=== PATIENT | female | born 1985 | race Caucasian/White ===

== ENCOUNTER 2017-10-17 21:10 | Emergency (ER) | payer OTHER, MEDICAID, SELFPAY ==
[2017-10-17 21:29] VITALS: BP 116/76; PULSE 103; RESP 20; TEMP 36.6; O2SAT 100
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
--- NOTE | 2017-10-17 23:00 | PC.NURSE ---
Hard c-collar applied,instructed not to move her neck side to supine,supine on gurney.
[2017-10-17 23:39] VITALS: BP 118/71; PULSE 88; RESP 18; O2SAT 99
[2017-10-18] MEDS: CYCLOBENZAPRINE 10 MG PREPACK 1 BOTTLE MISC (00:20)
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
== END 2017-10-18 00:05 | disposition home or self-care (01) ==
PROVIDERS: Emergency Provider Emergency Medicine
DX: M62.838 Other muscle spasm (principal)
CPT/HCPCS: 72125; 99282; 99284

== ENCOUNTER 2020-03-25 00:30 | Emergency (ER) | payer OTHER, SELFPAY ==
[2020-03-25 00:39] VITALS: BP 118/83; PULSE 117; RESP 16; O2SAT 100; BMI 20.5
--- NOTE | 2020-03-25 00:44 | DI.RAD.S_ITS ---
PROCEDURE: XR CHEST 2V INDICATIONS: left rib pain my lung is pinched TECHNIQUE: 2 views of the chest were acquired. COMPARISON: None. FINDINGS: Surgical changes and devices: None. Lungs and pleura: Lungs are clear. No pleural effusions or pneumothorax. Mediastinum: Mediastinal contours are normal. Heart size is normal. Bones and chest wall: No suspicious bony abnormalities. Soft tissues appear unremarkable. IMPRESSION: No acute cardiopulmonary disease process. Dictated by: Thalia Sinclair MD, PhD on 03/25/2020 at 9:14 Approved by: Thalia Sinclair MD, PhD on 03/25/2020 at 9:15
--- NOTE | 2020-03-25 01:09 | PC.NURSE ---
patient reports watching a comedy and laughing when she felt like she pinched her lung pain on left side worse with deep breath, feels like she can't take a deep full breath due to pain. Does not feel SOB, speaking in full sentences
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
== END 2020-03-25 02:00 | disposition left against medical advice (07) ==
PROVIDERS: Emergency Provider Emergency Medicine
DX: R07.1 Chest pain on breathing (principal)
CPT/HCPCS: 71046; 99283

== ENCOUNTER 2020-10-16 19:39 | Emergency (ER) | payer OTHER, MEDICAID, SELFPAY ==
[2020-10-16 19:44] VITALS: BP 126/79; PULSE 103; RESP 18; TEMP 36.6; O2SAT 100
--- NOTE | 2020-10-16 20:10 | ED_ITS ---
HPI - Dental/Oral General Chief complaint: Dental/Oral Stated complaint: swelling of face think form her tooth Time Seen by Provider: 10/16/20 20:01 Source: patient Mode of arrival: Ambulatory History of Present Illness HPI Narrative: The patient describes facial swelling, onset yesterday. She has left maxillary dental pain. She describes having known dental disease. She has no associated throat tightness, no fever, no shortness of breath. She has prior dental fractures, none acute. Related Data Previous Rx's Medication Instructions Recorded ferrous gluconate 324 mg (38 mg 324 mg PO BID #60 tab 05/06/16 iron) tablet medroxyprogesterone 10 mg tablet 0 PO SEE INSTRUCTIONS PRN #60 tab 05/30/16 desogestrel 0.15 mg-ethinyl 1 ea PO SEE INSTRUCTIONS #3 pac 06/06/16 estradiol 0.03 mg tablet (Keveneber) ibuprofen 600 mg tablet 600 mg PO TID-QID PRN #20 tab 10/17/17 prednisone 10 mg tablets in a dose See Rx Instructions PO PER PKG DIR 10/17/17 pack #21 each amoxicillin 500 mg capsule 500 mg PO TID 10 Days #30 cap 10/16/20 Allergies Allergy/AdvReac Type Severity Reaction Status Date / Time No Known Allergies Allergy Uncoded 03/25/20 00:43 Review of Systems Constitutional Constitutional: Reports as per HPI Comments: No fever or chills. ENT Ears, Nose, Mouth, and Throat: Reports dental pain Comments: Facial swelling Cardiovascular Cardiovascular: Denies chest pain Comments: No known cardiac issues Patient History Surgical History Status post dilation and curettage (05/22/16) Social History Smoking Status: Current every day smoker Smoking Status: Current every day smoker alcohol intake frequency: 3 or more drinks per day Substance Use Type: marijuana Exam Initial Vital Signs Initial Vital Signs: Vital Signs Temperature 97.8 F 10/16/20 19:44 Pulse Rate 103 H 10/16/20 19:44 Respiratory Rate 18 10/16/20 19:44 Blood Pressure 126/79 10/16/20 19:44 Pulse Oximetry 100 10/16/20 19:44 Const General: cooperative, healthy appearing and comfortable HENMA Head: other (Slight left facial swelling, no erythema. No induration or fl uctuance.) Mouth: oral mucosae normal, lip normal, tongue normal and mucous membranes abnormal Teeth and gingiva: caries and other (Fracture to tooth number 13. Tenderness consistent with tooth abscess.) Throat: posterior oropharynx normal Eyes General: appearance normal, both eyes and all related structures Neck Neck: No anterior neck swelling and No lymphadenopathy Cardio Rate: regular rate Rhythm: regular rhythm Heart Sounds: S1 normal and S2 normal Course Orders Ordered: Discontinued Medications Amoxicillin (Amoxicillin 250 Mg Capsule) 500 mg PO NOW ONE Stop: 10/16/20 20:03 Ibuprofen (Ibuprofen 400 Mg Tablet) 400 mg PO NOW ONE Stop: 10/16/20 20:03 Vital Signs Vital signs: Vital Signs - 8 hr 10/16/20 19:44 Temperature 97.8 F Pulse Rate 103 H Respiratory Rate 18 Blood Pressure 126/79 Pulse Oximetry 100 Discharge Plan Departure Patient Disposition: Home Clinical Impression: Abscess, dental Instructions: Tooth Abscess Activity Restrictions/Additional Instructions: Amoxicillin 3 times daily as prescribed. Advil 3 tablets every 6 hours as needed for pain. Apply ice packs over the area of swelling frequently for the next 2 days. I suggested follow-up with a dentist in 2-3 weeks. Return here if necessary. Prescriptions: New amoxicillin 500 mg capsule 500 mg PO TID 10 Days Qty: 30 RF: 0 No Action ferrous gluconate 324 MG tablet 324 mg PO BID Qty: 60 RF: 0 medroxyprogesterone 10 MG tablet 0 PO SEE INSTRUCTIONS PRNQty: 60 RF: 0 desogestrel-ethinyl estradiol [Laxmi] 1 EACH tablet 1 ea PO SEE INSTRUCTIONS Qty: 3 RF: 3 ibuprofen 600 mg tablet 600 mg PO TID-QID PRN (Reason: pain) Qty: 20 RF: 0 prednisone 10 mg tablets,dose pack See Rx Instructions PO PER PKG DIR Qty: 21 RF: 0
[2020-10-16] MEDS: IBUPROFEN 400 MG TABLET PO (20:19)
[2020-10-16] MEDS: AMOXICILLIN 250 MG CAPSULE 500 MG PO (20:19)
--- NOTE | 2020-10-16 20:21 | PC.NURSE ---
defer oral assessment to Dr Verdugo. Pt has left sided asymmetry, swollen.
== END 2020-10-16 20:27 | disposition home or self-care (01) ==
PROVIDERS: Emergency Provider Emergency Medicine
DX: K04.7 Periapical abscess without sinus (principal)
CPT/HCPCS: 99283

== ENCOUNTER 2020-12-12 11:09 | Emergency (ER) | payer OTHER, MEDICAID, SELFPAY ==
[2020-12-12 11:32] VITALS: BP 129/84; PULSE 77; RESP 18; TEMP 36.3; O2SAT 99
== END 2020-12-12 16:00 | disposition left against medical advice (07) ==
PROVIDERS: Emergency Provider Emergency Medicine
CPT/HCPCS: 99281

== ENCOUNTER 2020-12-12 22:48 | Emergency (ER) | payer OTHER, MEDICAID, SELFPAY ==
[2020-12-12 22:51] VITALS: BP 111/77; PULSE 104; RESP 20; TEMP 36.6; O2SAT 97
== END 2020-12-13 01:09 | disposition left against medical advice (07) ==
PROVIDERS: Emergency Provider Emergency Medicine
CPT/HCPCS: 99281

== ENCOUNTER 2021-06-28 11:43 | Emergency (ER) | payer OTHER, MEDICAID, SELFPAY ==
[2021-06-28 11:46] VITALS: BP 130/72; PULSE 100; RESP 15; TEMP 36.4; O2SAT 100; BMI 20.5
--- NOTE | 2021-06-28 11:52 | DI.CT.S_ITS ---
PROCEDURE: CT CERVICAL SPINE WO CON INDICATIONS: fall on top of head. TECHNIQUE: Noncontrast 3 mm thick sections acquired from the skull base to the T4 level. Sagittal and coronal reformats were then constructed. For radiation dose reduction, the following was used: automated exposure control, adjustment of mA and/or kV according to patient size. COMPARISON: [facility], CT, CT CERVICAL SPINE WO CON, 10/17/2017, 22:54. FINDINGS: Image quality: Excellent. Bones: No fractures or dislocations. Visualized superior ribs are intact. Mild multilevel degenerative disc disease and facet arthropathy. Soft tissues: Prevertebral soft tissues are normal in thickness. No paravertebral hematomas. No apical pneumothoraces. IMPRESSION: No fracture. No acute osseous lesion. If symptoms and/or clinical suspicion for pathology persists, evaluation with MRI should be considered for further assessment. Dictated by: Thalia Sinclair MD, PhD on 06/28/2021 at 12:14 Approved by: Thalia Sinclair MD, PhD on 06/28/2021 at 12:18
[2021-06-28] MEDS: TRAMADOL 50 MG TABLET PO (13:03)
[2021-06-28] MEDS: KETOROLAC 30 MG/ML VIAL 15 MG IM (13:03)
[2021-06-28] MEDS: LIDOCAINE PATCH 1 EACH ADH..PATCH 2 EACH TOP (13:03)
[2021-06-28] MEDS: methocarbamoL 500 MG TABLET PO (13:04)
[2021-06-28 13:23] VITALS: BP 136/80; PULSE 87; RESP 18; O2SAT 98
--- NOTE | 2021-06-28 16:13 | ED_ITS ---
HPI - Fall <GLORIA Tilley - Last Filed: 06/28/21 16:19> General Chief Complaint: Fall Stated Complaint: THINKS BROKE NECK ON TRAMPOLINE Time Seen by Provider: 06/28/21 12:17 Source: patient Mode of arrival: Ambulatory History of Present Illness HPI Narrative: 35-year-old female presents to the emergency department complaining neck pain after jumping on the trampoline last night and she tried to do a front flip, states she fell on the back of her neck and did not fully rotate. Patient denies any weakness, loss of bowel or bladder, endorses some numbness and tingling into her left fingers but states this is intermittent. She states she is unable to move her head fully to the left for to the right due to the pain on bilateral sides of her neck. She denies any loss of consciousness, nausea vomiting, chest pain, shortness of breath, incontinence, or weakness. She denies any vision changes, hallucinations, taking any medication for this, and currently she states her pain at 10/10. Related Data Previous Rx's Medication Instructions Recorded ferrous gluconate 324 mg (38 mg 324 mg PO BID #60 tab 05/06/16 iron) tablet medroxyprogesterone 10 mg tablet 0 PO SEE INSTRUCTIONS PRN #60 tab 05/30/16 desogestrel 0.15 mg-ethinyl 1 ea PO SEE INSTRUCTIONS #3 pac 06/06/16 estradiol 0.03 mg tablet (Juleber) ibuprofen 600 mg tablet 600 mg PO TID-QID PRN #20 tab 10/17/17 lidocaine 5 % topical patch 2 patch TOPICAL DAILY PRN #15 ea 06/28/21 (Lidoderm) methocarbamol 500 mg tablet 500 mg PO BID #14 tab 06/28/21 tramadol 50 mg tablet 50 mg PO DAILY PRN #10 tab 06/28/21 Allergies Allergy/AdvReac Type Severity Reaction Status Date / Time No Known Drug Allergies Allergy Verified 06/28/21 11:46 Review of Systems <GLORIA Tilley - Last Filed: 06/28/21 16:19> Review of Systems Narrative: General: denies fever, chills, malaise, sweats, fatigue Head/Neck: denies headache, endorses having bilateral neck pain, denies dizziness Eyes: denies visual changes, eye pain Cardio: denies chest pain, palpitations, edema Respiratory: denies dyspnea, cough, orthopnea GI: denies abdominal pain, nausea, vomiting, or diarrhea : denies dysuria, hematuria, urinary retention, frequency or incontinence MSK: denies joint pain, muscle weakness Skin: denies rash, itching, skin lesions or other Neuro: denies numbness, tingling Patient History <GLORIA Tilley - Last Filed: 06/28/21 16:19> Surgical History Status post dilation and curettage (05/22/16) Social History Smoking Status: Current every day smoker Smoking Status: Current every day smoker alcohol intake frequency: 3 or more drinks per day Substance Use Type: marijuana Exam <GLORIA Tilley - Last Filed: 06/28/21 16:19> Narrative Exam Narrative: Independently reviewed vitals signs and nursing notes. General: cooperative, comfortable, in no acute distress, well developed and well groomed Head: atraumatic, symmetrical facial expressions Neck: supple, atraumatic, without lymphadenopathy, bilateral trapezius muscle are tender to palpation, range of motion is limited due to pain Eyes: pupils equal round and reactive, EOMI, conjunctiva normal Nose: nares patent, no rhinorrhea Mouth/Throat: uvula midline, moist mucus membranes Cardiovascular: regular rate and rhythm, no peripheral edema, warm extremities Respiratory: normal effort, able to speak in complete sentences, no audible wheezing, stridor, or rales. No retractions or tachypnea. GI: abdomen soft, nontender to palpation, nondistended, no masses, no exquisite tenderness with exam, without guarding or rebound. MSK: moves all extremities, ambulatory w/steady gait, neurovascularly intact, no weakness Skin: brisk capillary refill, no rash, no erythema Neuro: normal speech and cognition, A&O x3, normal tone Psych: mental status is grossly normal, congruent mood, normal affect, pleasant and cooperative Initial Vital Signs Initial Vital Signs: Vital Signs Temperature 97.5 F L 06/28/21 11:46 Pulse Rate 100 H 06/28/21 11:46 Respiratory Rate 15 06/28/21 11:46 Blood Pressure 130/72 06/28/21 11:46 Pulse Oximetry 100 06/28/21 11:46 <Ventura Almazan DO - Last Filed: 06/28/21 16:53> Initial Vital Signs Initial Vital Signs: Vital Signs Temperature 97.5 F L 06/28/21 11:46 Pulse Rate 100 H 06/28/21 11:46 Respiratory Rate 15 06/28/21 11:46 Blood Pressure 130/72 06/28/21 11:46 Pulse Oximetry 100 06/28/21 11:46 Course <GLORIA Tilley - Last Filed: 06/28/21 16:19> Orders Ordered: ED Orders 06/28/21 11:52 CT cervical spine wo con Stat Discontinued Medications Ketorolac Tromethamine (Ketorolac 30 Mg/Ml Vial) 15 mg IM NOW ONE Stop: 06/28/21 12:53 Last Admin: 06/28/21 13:03 Dose: 15 mg Documented by: ANÍBAL Lidocaine (Lidocaine Patch 1 Each Adh..Patch) 2 each TOP NOW ONE Stop: 06/28/21 12:53 Last Admin: 06/28/21 13:03 Dose: 2 each Documented by: ANÍBAL Methocarbamol (Methocarbamol 500 Mg Tablet) 500 mg PO NOW ONE Stop: 06/28/21 12:53 Last Admin: 06/28/21 13:04 Dose: 500 mg Documented by: ANÍBAL Tramadol HCl (Tramadol 50 Mg Tablet) 50 mg PO NOW ONE Stop: 06/28/21 12:53 Last Admin: 06/28/21 13:03 Dose: 50 mg Documented by: ANÍBAL Vital Signs Vital signs: Vital Signs - 8 hr 06/28/21 11:46 06/28/21 13:23 Temperature 97.5 F L Pulse Rate 100 H 87 Respiratory Rate 15 18 Blood Pressure 130/72 136/80 Pulse Oximetry 100 98 <Ventura Almazan DO - Last Filed: 06/28/21 16:53> Orders Ordered: ED Orders 06/28/21 11:52 CT cervical spine wo con Stat Discontinued Medications Ketorolac Tromethamine (Ketorolac 30 Mg/Ml Vial) 15 mg IM NOW ONE Stop: 06/28/21 12:53 Last Admin: 06/28/21 13:03 Dose: 15 mg Documented by: ANÍBAL Lidocaine (Lidocaine Patch 1 Each Adh..Patch) 2 each TOP NOW ONE Stop: 06/28/21 12:53 Last Admin: 06/28/21 13:03 Dose: 2 each Documented by: ANÍBAL Methocarbamol (Methocarbamol 500 Mg Tablet) 500 mg PO NOW ONE Stop: 06/28/21 12:53 Last Admin: 06/28/21 13:04 Dose: 500 mg Documented by: ANÍBAL Tramadol HCl (Tramadol 50 Mg Tablet) 50 mg PO NOW ONE Stop: 06/28/21 12:53 Last Admin: 06/28/21 13:03 Dose: 50 mg Documented by: ANÍBAL Vital Signs Vital signs: Vital Signs - 8 hr 06/28/21 11:46 06/28/21 13:23 Temperature 97.5 F L Pulse Rate 100 H 87 Respiratory Rate 15 18 Blood Pressure 130/72 136/80 Pulse Oximetry 100 98 MDM - Fall <GLORIA Tilley - Last Filed: 06/28/21 16:19> Lab Data Labs: Point of Care Testing Test Results Negative Imaging Data CT - cervical spine: Radiologist's Impression: PROCEDURE:? CT CERVICAL SPINE WO CON ? INDICATIONS:? fall on top of head. ? TECHNIQUE:? Noncontrast 3 mm thick sections acquired from the skull base to the T4 level.? Sagittal and coronal reformats were then constructed.? For radiation dose reduction, the following was used:? automated exposure control, adjustment of mA and/or kV according to patient size.? ? COMPARISON:? [facility], CT, CT CERVICAL SPINE WO CON, 10/17/2017, 22:54. ? FINDINGS:? Image quality:? Excellent.? ? Bones:? No fractures or dislocations.? Visualized superior ribs are intact.? Mild multilevel degenerative disc disease and facet arthropathy.? ? Soft tissues:? Prevertebral soft tissues are normal in thickness.? No paravertebral hematomas.? No apical pneumothoraces.? ? ? IMPRESSION:? No fracture. No acute osseous lesion. If symptoms and/or clinical suspicion for pathology persists, evaluation with MRI should be considered for further assessment. ? ? Dictated by: Thalia Sinclair MD, PhD on 06/28/2021 at 12:14 ? ? Approved by: Thalia Sinclair MD, PhD on 06/28/2021 at 12:18 ? [facility] Narrative Medical decision making narrative: To the emergency department with neck pain after attempting a front flip on the trampoline last night and coming up short falling onto the back of her neck. Patient had a CT without contrast of her cervical spine which did not show any acute fracture or other abnormality. Patient had palpable muscle tension on bilateral sides of her cervical spine, with trapezius involvement. Her test was negative. She was treated for a neck strain and given lidocaine patch, Toradol, tramadol and methocarbamol for pain. She states this was helpful for her pain. Recommend close follow-up with primary care for outpatient physical therapy. Recommend heat packs, Tylenol, ibuprofen as needed, muscle relaxers and tramadol as needed, and lidocaine patches. Patient is appropriate and amenable to discharge home. Vital signs are stable on repeat examination is unremarkable. Patient has been informed of results. Patient has been given strict return to ER precautions for any new or worsening symptoms. Patient understands to follow up closely with outpatient providers as instructed. Patient understands plan and agrees to discharge home. All questions and concerns answered at this time. <Ventura Almazan, DO - Last Filed: 06/28/21 16:53> Lab Data Labs: Point of Care Testing Test Results Negative Discharge Plan Departure Patient Disposition: Home Clinical Impression: Acute strain of neck muscle Qualifiers: Encounter type: initial encounter Qualified Code(s): S16.1XXA - Strain of muscle, fascia and tendon at neck level, initial encounter Instructions: DI for Neck Sprain Activity Restrictions/Additional Instructions: *You have been diagnosed with a neck injury with muscle spasms. Please use heat, muscle relaxers as needed, lidocaine patches, ibuprofen starting tomorrow with food and rest for the next few days. You will be sore. Try not to be too still and do gentle range of motion throughout the day with your neck to prevent it from getting stiff. Please follow-up with your primary care provider if you continue to have numbness and tingling after doing these things above. There is no fracture on your CT scan which is good news. You may have local inflammation causing these symptoms in your fingers. If you are not getting better in the next week, physical therapy may be helpful for you. *What to do: *Please continue to take your regular medications as directed. [ x] New medication prescriptions sent to your pharmacy: [ [facility]] [ ] New medication written as a paper prescription [ ] No new medications given *Please follow up with your primary care provider in 2-3 days, call for an appointment. Let them know you were seen in the Emergency Department and that we asked that you be seen for follow-up. We will electronically transmit a record of today's note if your PCP is in our system *If you do not have a primary care provider please contact [phone] to establish care with one of the [facility] primary care providers. *Return to Emergency Department if you should have any new, worsening or concerning symptoms, such as [fever greater than 101F, chills, worsening pain, persistent vomiting or other bothersome symptoms] Prescriptions: New lidocaine [Lidoderm] 5 % adhesive patch,medicated 2 patch topical DAILY PRN (Reason: pain) Qty: 15 0RF Rx Instructions: leave on most painful area for up to 12 hrs tramadol 50 mg tablet 50 mg PO DAILY PRN (Reason: pain) Qty: 10 0RF methocarbamol 500 mg tablet 500 mg PO BID Qty: 14 0RF No Action ferrous gluconate 324 MG tablet 324 mg PO BID Qty: 60 0RF medroxyprogesterone 10 MG tablet 0 PO SEE INSTRUCTIONS PRNQty: 60 0RF desogestrel-ethinyl estradiol [Keveneber] 1 EACH tablet 1 ea PO SEE INSTRUCTIONS Qty: 3 3RF ibuprofen 600 mg tablet 600 mg PO TID-QID PRN (Reason: pain) Qty: 20 0RF <Ventura Almazan, DO - Last Filed: 06/28/21 16:53> [facility] Dr Almazan Co-Sign Statement: I was available for consultation during this patient's emergency department visit. This chart is signed by myself for administrative purposes only. I did not have direct contact with this patient during this visit. They were seen independently by the APC.
== END 2021-06-28 13:25 | disposition home or self-care (01) ==
PROVIDERS: Emergency Provider Nurse Practitioner Critical Care Medicine
DX: S16.1XXA Strain of muscle, fascia and tendon at neck level, initial encounter (principal); F17.200 Nicotine dependence, unspecified, uncomplicated; W19.XXXA Unspecified fall, initial encounter; Y93.44 Activity, trampolining
CPT/HCPCS: 72125; 81025; 96372; 99284; J1885

== ENCOUNTER 2021-09-29 14:09 | Emergency (ER) | payer OTHER, MEDICAID, SELFPAY ==
[2021-09-29 14:48] VITALS: BP 116/81; PULSE 95; RESP 18; TEMP 36.3; O2SAT 100
[2021-09-29] MEDS: KETOROLAC 10 MG TABLET PO (15:39)
[2021-09-29] MEDS: DOXYCYCLINE HYCLATE 100 MG TABLET PO (15:40)
--- NOTE | 2021-09-29 18:26 | ED_ITS ---
HPI - Skin/Abscess/Foreign Bdy <GLORIA Tilley - Last Filed: 09/29/21 19:16> General Chief complaint: Skin/Abscess/Foreign Body Stated complaint: thinks its a spider bite Time Seen by Provider: 09/29/21 15:23 Source: patient Mode of arrival: Ambulatory Limitations: no limitations History of Present Illness HPI narrative: This is a 36-year-old female presents emergency department with right forearm swelling, redness, it tenderness and pain started this morning. She states that she thinks she was bit by a spider or some bugs in her apartment, she states that there were lot of mosquitos in her house yesterday. Patient denies any open wound, she denies any recent fever, fatigue, illness, shortness of breath, chest pain or other symptom. Patient denies any open wound, denies any other wounds. Related Data Previous Rx's Medication Instructions Recorded ferrous gluconate 324 mg (38 mg 324 mg PO BID #60 tabs 05/06/16 iron) tablet medroxyprogesterone 10 mg tablet 0 PO SEE INSTRUCTIONS PRN #60 tabs 05/30/16 desogestrel 0.15 mg-ethinyl 1 ea PO SEE INSTRUCTIONS ##3 06/06/16 estradiol 0.03 mg tablet (Juleber) ibuprofen 600 mg tablet 600 mg PO TID-QID PRN pain #20 tabs 10/17/17 lidocaine 5 % topical patch 2 patch topical DAILY PRN pain #15 06/28/21 (Lidoderm) ea methocarbamol 500 mg tablet 500 mg PO BID muscle spasm #14 tabs 06/28/21 tramadol 50 mg tablet 50 mg PO DAILY PRN pain #10 tabs 06/28/21 ibuprofen 600 mg tablet 600 mg PO Q8H PRN pain #20 tabs 07/17/21 doxycycline hyclate 100 mg capsule 100 mg PO BID 7 days #14 caps 09/29/21 Allergies Allergy/AdvReac Type Severity Reaction Status Date / Time No Known Drug Allergies Allergy Verified 09/29/21 14:47 Review of Systems <GLORIA Tilley - Last Filed: 09/29/21 19:16> Review of Systems Narrative: General: denies fever, chills, malaise, sweats, fatigue Head/Neck: denies headache, neck pain, dizziness Eyes: denies visual changes, eye pain Cardio: denies chest pain, palpitations, edema Respiratory: denies dyspnea, cough, orthopnea GI: denies abdominal pain, nausea, vomiting, or diarrhea : denies dysuria, hematuria, urinary retention, frequency or incontinence MSK: denies joint pain, muscle weakness Skin: denies rash, itching, endorses swelling and erythema to her right forearm Neuro: denies numbness, tingling Patient History <GLORIA Tilley - Last Filed: 09/29/21 19:16> Surgical History Status post dilation and curettage (05/22/16) Social History Smoking Status: Current every day smoker Smoking Status: Current every day smoker alcohol intake frequency: 3 or more drinks per day Substance Use Type: marijuana Exam <GLORIA Tilley - Last Filed: 09/29/21 19:16> Narrative Exam Narrative: Independently reviewed vitals signs and nursing notes. General: cooperative, comfortable, in no acute distress, well groomed Head: atraumatic, symmetrical facial expressions Neck: supple Eyes: equal round and reactive, EOMI, conjunctiva normal Nose: nares patent, no rhinorrhea Mouth/Throat: moist mucus membranes Cardiovascular: regular rate and rhythm, no peripheral edema, warm extremities Respiratory: normal effort, able to speak in complete sentences, no audible wheezing, stridor, or rales. No retractions or tachypnea. GI: abdomen soft, nontender to palpation, nondistended, no masses, no exquisite tenderness with exam, without guarding or rebound. MSK: moves all extremities, neurovascularly intact, no weakness, normal tone Skin: brisk capillary refill, erythema and edema to her right forearm, this is approximately 4 cm x 2 cm, no streaking or fluctuance, no open wound, bite gutiérrez, no range of motion deficit, patient has full flexion extension of her right elbow and wrist. Neuro: normal speech and cognition, A&O x3 Psych: mental status is grossly normal, congruent mood, normal affect, pleasant and cooperative Initial Vital Signs Initial Vital Signs: Vital Signs Temperature 97.4 F L 09/29/21 14:48 Pulse Rate 95 H 09/29/21 14:48 Respiratory Rate 18 09/29/21 14:48 Blood Pressure 116/81 09/29/21 14:48 Pulse Oximetry 100 09/29/21 14:48 Oxygen Delivery Method 09/29/21 14:48 <Ventura Almazan DO - Last Filed: 09/29/21 19:24> Initial Vital Signs Initial Vital Signs: Vital Signs Temperature 97.4 F L 09/29/21 14:48 Pulse Rate 95 H 09/29/21 14:48 Respiratory Rate 18 09/29/21 14:48 Blood Pressure 116/81 09/29/21 14:48 Pulse Oximetry 100 09/29/21 14:48 Oxygen Delivery Method 09/29/21 14:48 Course <GLORIA Tilley - Last Filed: 09/29/21 19:16> Orders Ordered: Discontinued Medications Doxycycline Hyclate (Doxycycline Hyclate 100 Mg Tablet) 100 mg PO NOW ONE Stop: 09/29/21 15:31 Last Admin: 09/29/21 15:40 Dose: 100 mg Documented By: KP Ketorolac Tromethamine (Ketorolac 10 Mg Tablet) 10 mg PO NOW ONE Stop: 09/29/21 15:31 Last Admin: 09/29/21 15:39 Dose: 10 mg Documented By: KP Vital Signs Vital signs: Vital Signs - 8 hr 09/29/21 14:48 Temperature 97.4 F L Pulse Rate 95 H Respiratory Rate 18 Blood Pressure 116/81 Pulse Oximetry 100 Oxygen Delivery Method Room Air <Ventura Almazan DO - Last Filed: 09/29/21 19:24> Orders Ordered: Discontinued Medications Doxycycline Hyclate (Doxycycline Hyclate 100 Mg Tablet) 100 mg PO NOW ONE Stop: 09/29/21 15:31 Last Admin: 09/29/21 15:40 Dose: 100 mg Documented By: KP Ketorolac Tromethamine (Ketorolac 10 Mg Tablet) 10 mg PO NOW ONE Stop: 09/29/21 15:31 Last Admin: 09/29/21 15:39 Dose: 10 mg Documented By: KP Vital Signs Vital signs: Vital Signs - 8 hr 09/29/21 14:48 Temperature 97.4 F L Pulse Rate 95 H Respiratory Rate 18 Blood Pressure 116/81 Pulse Oximetry 100 Oxygen Delivery Method Room Air MDM - Skin/Abscess/Foreign Bdy <Mary Blancas, [facility] - Last Filed: 09/29/21 19:16> [facility] Narrative Medical decision making narrative: This is a 36-year-old female presents the emergency department with right forearm swelling, erythema and pain which started when she woke up this morning and she thought she was bit by a spider or mosquitos. Patient denies any history of this in the past, had appears like cellulitis today on her right forearm approximately 4 cm x 2 cm, erythematous and edematous without any fluctuance or palpable abscess. She has full range of motion of her right elbow and arm without any deficit. She is neurovascularly intact without any sensation changes, has been afebrile without any systemic symptoms of illness. She was prescribed seven days of doxycycline, denies any medication allergies, she was given strict return precautions, fever she was also given Toradol p.o. for pain. She is encouraged to use Tylenol and ibuprofen as needed for pain at or fever home and to return to the emergency department for any worsening of this. Patient is appropriate and amenable to discharge home. Vital signs are stable on repeat examination is unremarkable. Patient has been informed of results. Patient has been given strict return to ER precautions for any new or worsening symptoms. Patient understands to follow up closely with outpatient providers as instructed. Patient understands plan and agrees to discharge home. All questions and concerns answered at this time. Discharge Plan Departure Patient Disposition: Home Clinical Impression: Cellulitis Qualifiers: Site of cellulitis: extremity Site of cellulitis of extremity: upper extremity Laterality: right Qualified Code(s): L03.113 - Cellulitis of right upper limb Instructions: DI for Cellulitis -- Adult Activity Restrictions/Additional Instructions: *You have been diagnosed with a skin infection of your right forearm, this could be due to a bug bite or other cause but it does not appear that there is any abscess at this time. Please take this antibiotic twice a day for the next seven days, stay hydrated, you can take ibuprofen starting tomorrow and Tylenol any time today for pain. You may use ice, keep it elevated, if this gets worse over the next 24 hours after two doses of an antibiotic, please return to the emergency department for another evaluation, if you have streaking redness up your arm, please return to emergency department as well. This should get better after 24 hours, hope it feels better soon. *What to do: *Please continue to take your regular medications as directed. [x ] New medication prescriptions sent to your pharmacy: [facility] ] [ ] New medication written as a paper prescription [ ] No new medications given *Please follow up with your primary care provider in 2-3 days, call for an appointment. Let them know you were seen in the Emergency Department and that we asked that you be seen for follow-up. We will electronically transmit a record of today's note if your PCP is in our system *If you do not have a primary care provider please contact [phone] to establish care with one of the [facility] primary care providers. *Return to Emergency Department if you should have any new, worsening or concerning symptoms, such as [fever greater than 101F, chills, worsening pain, persistent vomiting or other bothersome symptoms] Prescriptions: New doxycycline hyclate 100 mg capsule 100 mg PO BID 7 Days Qty: 14 0RF No Action ibuprofen 600 mg tablet 600 mg PO Q8H PRN (Reason: pain) Qty: 20 0RF ferrous gluconate 324 MG tablet 324 mg PO BID Qty: 60 0RF medroxyprogesterone 10 MG tablet 0 PO SEE INSTRUCTIONS PRNQty: 60 0RF desogestrel-ethinyl estradiol [Juleber] 1 EACH tablet 1 ea PO SEE INSTRUCTIONS Qty: 3 3RF ibuprofen 600 mg tablet 600 mg PO TID-QID PRN (Reason: pain) Qty: 20 0RF lidocaine [Lidoderm] 5 % adhesive patch,medicated 2 patch topical DAILY PRN (Reason: pain) Qty: 15 0RF Rx Instructions: leave on most painful area for up to 12 hrs tramadol 50 mg tablet 50 mg PO DAILY PRN (Reason: pain) Qty: 10 0RF methocarbamol 500 mg tablet 500 mg PO BID Qty: 14 0RF Referrals: Miscellaneous,Doctor, MD [Primary Care Provider] - Visit Report Forms: Patient Portal/API <Ventura Almazan, DO - Last Filed: 09/29/21 19:24> [facility] Dr Almazan Co-Sign Statement: I was available for consultation during this patient's emergency department visit. This chart is signed by myself for administrative purposes only. I did not have direct contact with this patient during this visit. They were seen independently by the APC.
== END 2021-09-29 15:52 | disposition home or self-care (01) ==
PROVIDERS: Emergency Provider Nurse Practitioner Critical Care Medicine
DX: L03.113 Cellulitis of right upper limb (principal)
CPT/HCPCS: 99283

== ENCOUNTER 2021-10-23 11:17 | Emergency (ER) | payer OTHER, MEDICAID, SELFPAY ==
--- NOTE | 2021-10-23 12:47 | PC.NURSE ---
3rd and final call from triage. No answer
== END 2021-10-23 11:50 | disposition left against medical advice (07) ==
PROVIDERS: Emergency Provider Emergency Medicine

== ENCOUNTER 2022-01-05 21:03 | Emergency (ER) | payer OTHER, MEDICAID, SELFPAY ==
[2022-01-05 21:10] VITALS: BP 110/74; PULSE 107; RESP 16; TEMP 36.1; O2SAT 97; BMI 20.5
[2022-01-05 22:09] LABS: Amorphous Sediment Urine 2+; Bacteria Urine Occasional (0-1); RBC Urine 1-5/HPF (0-5/HPF); WBC Urine 5-10/HPF (0-5/HPF)
[2022-01-05 22:10] LABS: Ictotest Urine Negative (Negative)
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
[2022-01-05] MEDS: NITROFURANTOIN ER 100 MG CAPSULE PO (22:22)
== END 2022-01-05 22:25 | disposition home or self-care (01) ==
PROVIDERS: Emergency Provider Emergency Medicine
DX: N39.0 Urinary tract infection, site not specified (principal)
CPT/HCPCS: 81003; 81015; 81025; 87077; 87086; 99283

== ENCOUNTER 2022-05-06 04:54 | Emergency (ER) | payer OTHER, MEDICAID, SELFPAY ==
[2022-05-06 05:03] VITALS: BMI 20.5
[2022-05-06 05:16] VITALS: BP 118/87; PULSE 111; RESP 22; TEMP 36.2; O2SAT 99; BMI 20.5
--- NOTE | 2022-05-06 05:22 | ED_ITS ---
HPI - Psych General Chief Complaint: Psychiatric Symptoms Stated Complaint: suicidal Time Seen by Provider: 05/06/22 05:01 Source: patient Mode of arrival: Ambulatory Limitations: no limitations History of Present Illness HPI Narrative: Patient is a 36-year-old female with a history of substance and alcohol abuse jorge banks arrives in the emergency department today stating that she was having thoughts of killing herself. She states she is scheduled to attend rehab today but there has been issues with her ride if getting there now she does not have a ride which causes her to get anxious and having thoughts of hurting herself. She states that she ?does not have the balls? to follow through with hurting herself. She is 2 kids at home. She did admit to drinking alcohol yesterday. She stated that she has a bed waiting for her at [facility] in [facility]. She arrives today not knowing what to do and how to get to the facility. Related Data Previous Rx's Medication Instructions Recorded ferrous gluconate 324 mg (38 mg 324 mg PO BID #60 tabs 05/06/16 iron) tablet medroxyprogesterone 10 mg tablet 0 PO SEE INSTRUCTIONS PRN #60 tabs 05/30/16 desogestrel 0.15 mg-ethinyl 1 ea PO SEE INSTRUCTIONS ##3 06/06/16 estradiol 0.03 mg tablet (Laxmi) ibuprofen 600 mg tablet 600 mg PO TID-QID PRN pain #20 tabs 10/17/17 lidocaine 5 % topical patch 2 patch topical DAILY PRN pain #15 06/28/21 (Lidoderm) ea methocarbamol 500 mg tablet 500 mg PO BID muscle spasm #14 tabs 06/28/21 tramadol 50 mg tablet 50 mg PO DAILY PRN pain #10 tabs 06/28/21 ibuprofen 600 mg tablet 600 mg PO Q8H PRN pain #20 tabs 07/17/21 Allergies Allergy/AdvReac Type Severity Reaction Status Date / Time No Known Drug Allergies Allergy Verified 01/05/22 21:16 Review of Systems Constitutional Constitutional: Reports system reviewed and no additional complaints, except as documented Cardiovascular Comments: No chest pain Respiratory Comments: No shortness of breath Gastrointestinal Comments: No abdominal pain Psychiatric Psychiatric: Reports system reviewed and no additional complaints, except as documented Patient History Surgical History Status post dilation and curettage (05/22/16) Social History Smoking Status: Current every day smoker Smoking Status: Current every day smoker alcohol intake frequency: 3 or more drinks per day Substance Use Type: marijuana and methamphetamine Exam Initial Vital Signs Initial Vital Signs: Vital Signs Temperature 97.2 F L 05/06/22 05:16 Pulse Rate 111 H 05/06/22 05:16 Respiratory Rate 22 05/06/22 05:16 Blood Pressure 118/87 05/06/22 05:16 Pulse Oximetry 99 05/06/22 05:16 Oxygen Delivery Method 05/06/22 05:16 HENMT Head: normal to inspection and normocephalic Resp Effort & Inspection: normal respiratory effort Cardio Rate: regular rate Neuro General: patient alert, patient awake and moves all extremities Psych Other: Is calm and cooperative. Course Orders Ordered: ED Orders 05/06/22 05:09 Consult to [employer] - Office Clerk Assistant Stat 05/06/22 05:25 COVID19 -Nasal RAPID/Pre-Proc Stat 05/06/22 05:45 Complete Blood Count AUTO DIFF Stat Comprehensive Metabolic Panel Stat Ethanol (ETOH) Stat Lipase Stat Test Serum,Qual Stat Thyroid Stimulating Hormone Stat 05/06/22 06:00 Urine Drug Screen, Rapid Stat Vital Signs Vital signs: Vital Signs - 8 hr 05/06/22 05:16 05/06/22 06:44 Temperature 97.2 F L 97.3 F L Pulse Rate 111 H 93 H Respiratory Rate 22 18 Blood Pressure 118/87 122/70 Pulse Oximetry 99 99 Oxygen Delivery Method Room Air Room Air [facility] - Psych Lab Data Attestation: I reviewed the patient's lab results. 05/06/22 05:45 05/06/22 05:45 Labs: Lab Results 05/06/22 05/06/22 05/06/22 Range/Units 05:45 05:45 05:45 WBC 6.8 (4.5-11.0) X10^3/uL RBC 4.10 (4.0-5.2) X10^6/uL Hgb 11.2 L (12.0-16.0) g/dL Hct 33.8 L (36-46) % MCV 82.3 (80-100) fL MCH 27.2 (26-34) PG MCHC 33.1 (30-36) % RDW 15.9 H (11.6-14.8) % Plt Count 238 (150-400) X10^3/uL Neut % (Auto) 65.4 (50-75) % Lymph % (Auto) 24.0 L (25-40) % Sampson % (Auto) 9.0 (3-14) % Eos % (Auto) 1.2 L (2-4) % Baso % (Auto) 0.4 (0-2) % Neut # (Auto) 4400 (0438-3783) /uL Lymph # (Auto) 1600 (9016-9159) /uL Sampson # (Auto) 600 (0-900) /uL Eos # (Auto) 100 (0-450) /uL Baso # (Auto) 0 (0-100) /uL Sodium 140 (137-145) mmol/L Potassium 3.5 (3.4-5.1) mmol/L Chloride 103 (98-107) mmol/L Carbon Dioxide 28 (22-32) mmol/L BUN 13 (7-17) mg/dL Creatinine 0.85 (0.52-1.04) mg/dL Estimated GFR > 60 (>60) mL/min BUN/Creatinine Ratio 15.3 (6-22) Glucose 94 (70-100) mg/dL Calcium 9.3 (8.4-10.2) mg/dL Total Bilirubin 0.5 (0.2-1.3) mg/dL AST 22 (14-36) IU/L ALT 15 (<35) IU/L Alkaline Phosphatase 65 (38-126) U/L Total Protein 7.6 (6.3-8.2) g/dL Albumin 4.6 (3.5-5.0) g/dL Globulin 3.0 (1.7-4.1) g/dL Albumin/Globulin Ratio 1.5 (1.0-2.8) Lipase 37 (23-300) U/L Serum , Qual Negative (Negative) U Opiates 300ng/mL cut (Negative) Ur Oxycodone Screen (Negative) Urine Methadone Screen (Negative) Ur Barbiturates Screen (Negative) U Tricyclic Antidepress (Negative) Ur Phencyclidine Scrn (Negative) Ur Amphetamines Screen (Negative) U Methamphetamines Scrn (Negative) Ur MDMA Scrn (Ecstasy) (Negative) U Benzodiazepines Scrn (Negative) Urine Cocaine Screen (Negative) U Marijuana (THC) Screen (Negative) Ethyl Alcohol < 10 ( - 10) mg/dL 05/06/22 Range/Units 06:00 WBC (4.5-11.0) X10^3/uL RBC (4.0-5.2) X10^6/uL Hgb (12.0-16.0) g/dL Hct (36-46) % MCV (80-100) fL MCH (26-34) PG MCHC (30-36) % RDW (11.6-14.8) % Plt Count (150-400) X10^3/uL Neut % (Auto) (50-75) % Lymph % (Auto) (25-40) % Sampson % (Auto) (3-14) % Eos % (Auto) (2-4) % Baso % (Auto) (0-2) % Neut # (Auto) (5434-6920) /uL Lymph # (Auto) (6427-9832) /uL Sampson # (Auto) (0-900) /uL Eos # (Auto) (0-450) /uL Baso # (Auto) (0-100) /uL Sodium (137-145) mmol/L Potassium (3.4-5.1) mmol/L Chloride (98-107) mmol/L Carbon Dioxide (22-32) mmol/L BUN (7-17) mg/dL Creatinine (0.52-1.04) mg/dL Estimated GFR (>60) mL/min BUN/Creatinine Ratio (6-22) Glucose (70-100) mg/dL Calcium (8.4-10.2) mg/dL Total Bilirubin (0.2-1.3) mg/dL AST (14-36) IU/L ALT (<35) IU/L Alkaline Phosphatase (38-126) U/L Total Protein (6.3-8.2) g/dL Albumin (3.5-5.0) g/dL Globulin (1.7-4.1) g/dL Albumin/Globulin Ratio (1.0-2.8) Lipase (23-300) U/L Serum , Qual (Negative) U Opiates 300ng/mL cut Negative (Negative) Ur Oxycodone Screen Negative (Negative) Urine Methadone Screen Negative (Negative) Ur Barbiturates Screen Negative (Negative) U Tricyclic Antidepress Negative (Negative) Ur Phencyclidine Scrn Negative (Negative) Ur Amphetamines Screen Positive H (Negative) U Methamphetamines Scrn Positive H (Negative) Ur MDMA Scrn (Ecstasy) Positive H (Negative) U Benzodiazepines Scrn Negative (Negative) Urine Cocaine Screen Negative (Negative) U Marijuana (THC) Screen Positive H (Negative) Ethyl Alcohol ( - 10) mg/dL MDM Narrative Medical decision making narrative: Patient is medically cleared. I contacted the [facility] however the night coverage there stated that he was not able to look up whether not the patient actually had a bed or not. The plan was to keep the patient here in the emergency department until the morning of the transport her to the facility. While she was here 1 of her friends arrived and offered to take her. Patient states that she felt safe doing this. Her friend felt safe taking her as well. Will discharge patient to go to the rehab facility. Discharge Plan Departure Patient Disposition: Home Clinical Impression: Depression Instructions: Depression Activity Restrictions/Additional Instructions: Your being discharged under the care of your friend to be driven to [place] for the recovery center. Be careful on your drive there. Please return to the emergency department for any new or worsening symptoms. Prescriptions: No Action ibuprofen 600 mg tablet 600 mg PO Q8H PRN (Reason: pain) Qty: 20 0RF ferrous gluconate 324 MG tablet 324 mg PO BID Qty: 60 0RF medroxyprogesterone 10 MG tablet 0 PO SEE INSTRUCTIONS PRNQty: 60 0RF desogestrel-ethinyl estradiol [Juleber] 1 EACH tablet 1 ea PO SEE INSTRUCTIONS Qty: 3 3RF ibuprofen 600 mg tablet 600 mg PO TID-QID PRN (Reason: pain) Qty: 20 0RF lidocaine [Lidoderm] 5 % adhesive patch,medicated 2 patch topical DAILY PRN (Reason: pain) Qty: 15 0RF Rx Instructions: leave on most painful area for up to 12 hrs tramadol 50 mg tablet 50 mg PO DAILY PRN (Reason: pain) Qty: 10 0RF methocarbamol 500 mg tablet 500 mg PO BID Qty: 14 0RF Referrals: Miscellaneous,Doctor, MD [Primary Care Provider] - Stand Alone Forms: Patient Portal/API
[2022-05-06 05:58] LABS: Add Manual Diff / Slide Review NO; Basophils Absolute Auto 0 /uL (0-100); Basophils Percent Auto 0.4 % (0-2); Eosinophils Absolute Auto 100 /uL (0-450); Eosinophils Percent Auto 1.2 % (2-4); Hematocrit 33.8 % (36-46); Hemoglobin 11.2 g/dL (12.0-16.0); Lymphocytes Absolute Auto 1600 /uL (1100-4500); Mean Corpuscular HGB Conc 33.1 % (30-36); Mean Corpuscular Hemoglobin 27.2 PG (26-34); Mean Corpuscular Volume 82.3 fL (80-100); Monocytes Absolute Auto 600 /uL (0-900); Neutrophils Absolute Auto 4400 /uL (1500-7000); Neutrophils Percent Auto 65.4 % (50-75); Platelet Count 238 X10^3/uL (150-400); Red Cell Distribution Width 15.9 % (11.6-14.8); White Blood Cell Count 6.8 X10^3/uL (4.5-11.0)
[2022-05-06 06:04] LABS: Alanine Aminotransferase 15 IU/L (<35); Albumin 4.6 g/dL (3.5-5.0); Albumin Globulin Ratio 1.5 (1.0-2.8); Alkaline Phosphatase 65 U/L (38-126); Aspartate Aminotransferase 22 IU/L (14-36); BUN Creatinine Ratio 15.3 (6-22); Bilirubin Total 0.5 mg/dL (0.2-1.3); Blood Urea Nitrogen 13 mg/dL (7-17); Calcium 9.3 mg/dL (8.4-10.2); Carbon Dioxide 28 mmol/L (22-32); Chloride 103 mmol/L (98-107); Estimated Glomerular Filt Rate > 60 mL/min (>60); Ethanol (ETOH) < 10 mg/dL; Glucose 94 mg/dL (70-100); HEMOLYSIS < 15 (0-50); Lipase 37 U/L (23-300); Potassium 3.5 mmol/L (3.4-5.1); Sodium 140 mmol/L (137-145); Total Protein 7.6 g/dL (6.3-8.2)
[2022-05-06 06:15] LABS: Pregnancy Test Serum,Qual Negative (Negative)
[2022-05-06 06:24] LABS: UR Morphine/Opiate cutoff 300 Negative (Negative); Ur Creatinine 50 (Normal); Ur Specific Gravity 1.025 (Normal); Urine Amphetamines Positive (Negative); Urine Barbiturates Negative (Negative); Urine Benzodiazepines Negative (Negative); Urine Cocaine Negative (Negative); Urine MDMA Positive (Negative); Urine Methadone Negative (Negative); Urine Methamphetamines Positive (Negative); Urine Oxycodone Negative (Negative); Urine Phencyclidine Negative (Negative); Urine Tetrahydrocannabinol Positive (Negative); Urine Tricyclic Antidepressant Negative (Negative); Urine pH 7 (Normal)
[2022-05-06 06:44] VITALS: BP 122/70; PULSE 93; RESP 18; TEMP 36.3; O2SAT 99
[2022-05-06 06:47] LABS: Thyroid Stimulating Hormone 2.49 uIU/mL (0.47-4.68)
[2022-05-06 07:07] LABS: COVID19 -Nasal RAPID Negative (Negative)
== END 2022-05-06 06:45 | disposition home or self-care (01) ==
PROVIDERS: Emergency Provider Emergency Medicine
DX: F32.A Depression, unspecified (principal); Z20.822 Contact with and (suspected) exposure to COVID-19
CPT/HCPCS: 80053; 80305; 80320; 83690; 84443; 84703; 85025; 87635; 99284; C9803

== ENCOUNTER → 2022-07-20 14:12 | Outpatient (CLI) | payer OTHER, MEDICAID, SELFPAY ==
[2022-07-20 15:16] LABS: Add Manual Diff / Slide Review NO; Basophils Absolute Auto 0 /uL (0-100); Basophils Percent Auto 0.5 % (0-2); Eosinophils Absolute Auto 100 /uL (0-450); Eosinophils Percent Auto 1.5 % (2-4); Hemoglobin 11.1 g/dL (12.0-16.0); Lymphocytes Absolute Auto 1500 /uL (1100-4500); Lymphocytes Percent Auto 25.6 % (25-40); Mean Corpuscular HGB Conc 32.6 % (30-36); Mean Corpuscular Hemoglobin 26.5 PG (26-34); Mean Corpuscular Volume 81.4 fL (80-100); Monocytes Absolute Auto 500 /uL (0-900); Monocytes Percent Auto 9.4 % (3-14); Neutrophils Absolute Auto 3600 /uL (1500-7000); Platelet Count 208 X10^3/uL (150-400); Red Blood Cell Count 4.18 X10^6/uL (4.0-5.2); White Blood Cell Count 5.8 X10^3/uL (4.5-11.0)
== END ==
PROVIDERS: Referring Provider Family Medicine; Visit Provider Family Medicine
DX: G25.0 Essential tremor (principal)
CPT/HCPCS: 36415; 85025

== ENCOUNTER → 2022-08-03 15:30 | Outpatient (CLI) | payer OTHER, MEDICAID, SELFPAY ==
[2022-08-03 17:44] LABS: HEMOLYSIS < 15 (0-50); Iron 19 ug/dL (37-170)
[2022-08-03 17:46] LABS: Alanine Aminotransferase 15 IU/L (<35); Albumin 4.2 g/dL (3.5-5.0); Albumin Globulin Ratio 1.6 (1.0-2.8); Alkaline Phosphatase 80 U/L (38-126); Aspartate Aminotransferase 18 IU/L (14-36); BUN Creatinine Ratio 19.5 (6-22); Bilirubin Total 0.3 mg/dL (0.2-1.3); Blood Urea Nitrogen 16 mg/dL (7-17); Calcium 9.1 mg/dL (8.4-10.2); Carbon Dioxide 26 mmol/L (22-32); Chloride 104 mmol/L (98-107); Estimated Glomerular Filt Rate > 60 mL/min (>60); Globulin 2.7 g/dL (1.7-4.1); Glucose 81 mg/dL (70-100); HEMOLYSIS < 15 (0-50); Potassium 3.8 mmol/L (3.4-5.1); Sodium 137 mmol/L (137-145); Total Protein 6.9 g/dL (6.3-8.2)
[2022-08-03 17:54] LABS: Percent Iron Saturation 5 % (15-50); Total Iron Binding Capacity 390 ug/dL (265-497); Transferrin 300 mg/dL (206-381)
[2022-08-03 18:15] LABS: TSH w/ Reflex to FT4 1.69 uIU/mL (0.47-4.68)
[2022-08-03 18:22] LABS: Ferritin 5 ng/mL (6-137)
[2022-08-03 18:54] LABS: Folate 8.3 ng/mL (2.76-20.0); Vitamin B12 289 pg/mL (239-931)
== END ==
PROVIDERS: Referring Provider Family Medicine; Visit Provider Family Medicine
DX: D64.9 Anemia, unspecified (principal)
CPT/HCPCS: 36415; 80053; 82607; 82728; 82746; 83540; 83550; 84443

== ENCOUNTER 2022-08-26 03:58 | Emergency (ER) | payer OTHER, MEDICAID, SELFPAY ==
[2022-08-26 04:04] VITALS: BP 121/77; PULSE 89; RESP 18; TEMP 36.5; O2SAT 98; BMI 20.5
--- NOTE | 2022-08-26 04:36 | ED.SKABFB ---
HPI - Skin/Abscess/Foreign Bdy General Chief complaint: Skin/Abscess/Foreign Body Stated complaint: Bug Bite Time Seen by Provider: 08/26/22 04:22 Source: patient Mode of arrival: Family Vehicle Limitations: no limitations History of Present Illness HPI narrative: Patient is a healthy 37-year-old female who presents with right-sided for his swelling and neck pain. She reports she was bit by a bug. She had some swelling but says it got worse throughout the night. She tried a little bit of ice did not really help. She feels like she might be having some difficulty swallowing. She is put calamine lotion on top of her forehead it is not helping. Related Data Previous Rx's Medication Instructions Recorded ferrous gluconate 324 mg (38 mg 324 mg PO BID #60 tabs 05/06/16 iron) tablet medroxyprogesterone 10 mg tablet 0 PO SEE INSTRUCTIONS PRN #60 tabs 05/30/16 desogestrel 0.15 mg-ethinyl 1 ea PO SEE INSTRUCTIONS ##3 06/06/16 estradiol 0.03 mg tablet (Keveneber) ibuprofen 600 mg tablet 600 mg PO TID-QID PRN pain #20 tabs 10/17/17 lidocaine 5 % topical patch 2 patch topical DAILY PRN pain #15 06/28/21 (Lidoderm) ea methocarbamol 500 mg tablet 500 mg PO BID muscle spasm #14 tabs 06/28/21 tramadol 50 mg tablet 50 mg PO DAILY PRN pain #10 tabs 06/28/21 ibuprofen 600 mg tablet 600 mg PO Q8H PRN pain #20 tabs 07/17/21 Allergies Allergy/AdvReac Type Severity Reaction Status Date / Time No Known Drug Allergies Allergy Verified 08/26/22 04:34 Review of Systems Review of Systems ROS Unobtainable: All systems reviewed & are unremarkable except as noted in HPI and below Patient History Surgical History Status post dilation and curettage (05/22/16) Social History Smoking Status: Current every day smoker Smoking Status: Current every day smoker alcohol intake frequency: 3 or more drinks per day Substance Use Type: marijuana and methamphetamine Exam Initial Vital Signs Initial Vital Signs: Vital Signs Temperature 97.7 F 08/26/22 04:04 Pulse Rate 89 08/26/22 04:04 Respiratory Rate 18 08/26/22 04:04 Blood Pressure 121/77 08/26/22 04:04 Pulse Oximetry 98 08/26/22 04:04 Oxygen Delivery Method Room Air 08/26/22 04:04 GENERAL: Well-appearing 37 year female HEENT: Head atraumatic,EOMI, pupils reactive, face symmetric, moist mucous membranes CARDIOVASCULAR: Regular rate and rhythm without murmurs, rubs or gallops. RESPIRATORY: Breath sounds equal bilaterally, no wheezes rales or rhonchi. No difficulty speaking, managing own secretions, no stridor EXTREMITIES: Normal range of motion, no clubbing or edema. Neurovascularly intact NEUROLOGICAL: Alert and oriented x4. SKIN: Swelling on right side of forehead no significant erythema Course Orders Ordered: Discontinued Medications Prednisone (Prednisone 20 Mg Tablet) 40 mg PO NOW ONE Stop: 08/26/22 04:40 Last Admin: 08/26/22 04:48 Dose: 40 mg Documented By: WANDA Vital Signs Vital signs: Vital Signs - 8 hr 08/26/22 04:04 Temperature 97.7 F Pulse Rate 89 Respiratory Rate 18 Blood Pressure 121/77 Pulse Oximetry 98 Oxygen Delivery Method Room Air MDM - Skin/Abscess/Foreign Bdy MDM Narrative Medical decision making narrative: 37-year-old female presents after up a bite a few hours prior. She reports the swelling has gotten significantly worse and that is pruritic in nature. She is no evidence of anaphylaxis although complained a little bit of some neck pain and difficulty swallowing. Too early for any evidence abscess. She is given a dose of prednisone to help with a localized reaction. She is actually have quite bit swelling on the right side of her forehead. Discharge Plan Departure Patient Disposition: Home Clinical Impression: Bug bite Instructions: Insect Bites and Stings Activity Restrictions/Additional Instructions: *You have been diagnosed with bug bite *What to do: At this time you have some swelling on her forehead. I recommend ice and monitoring. Your having any difficulty breathing or swallowing then please return to the ED *Continue to take medications as directed Benadryl 25-50 mg every 6 hours if needed for itching *Follow up with your primary care provider in 2-3 days or call [phone] *Return to ER if you should have increasing swelling difficulty swallowing difficulty breathing or any new, worsening or concerning symptoms Prescriptions: No Action ibuprofen 600 mg tablet 600 mg PO Q8H PRN (Reason: pain) Qty: 20 0RF ferrous gluconate 324 MG tablet 324 mg PO BID Qty: 60 0RF medroxyprogesterone 10 MG tablet 0 PO SEE INSTRUCTIONS PRNQty: 60 0RF desogestrel-ethinyl estradiol [Juleber] 1 EACH tablet 1 ea PO SEE INSTRUCTIONS Qty: 3 3RF ibuprofen 600 mg tablet 600 mg PO TID-QID PRN (Reason: pain) Qty: 20 0RF lidocaine [Lidoderm] 5 % adhesive patch,medicated 2 patch topical DAILY PRN (Reason: pain) Qty: 15 0RF Rx Instructions: leave on most painful area for up to 12 hrs tramadol 50 mg tablet 50 mg PO DAILY PRN (Reason: pain) Qty: 10 0RF methocarbamol 500 mg tablet 500 mg PO BID Qty: 14 0RF Referrals: Juma Rowe MD [Primary Care Provider] - Stand Alone Forms: Patient Portal/API
[2022-08-26] MEDS: predniSONE 20 MG TABLET 40 MG PO (04:48)
== END 2022-08-26 04:49 | disposition home or self-care (01) ==
PROVIDERS: Emergency Provider Emergency Medicine; PCP Student in an Organized Health Care Education/Training Program
DX: M54.2 Cervicalgia (principal); R13.10 Dysphagia, unspecified; W57.XXXA Bitten or stung by nonvenomous insect and other nonvenomous arthropods, initial encounter
CPT/HCPCS: 99283

== ENCOUNTER 2023-03-17 16:54 | Emergency (ER) | payer OTHER, MEDICAID, SELFPAY ==
[2023-03-17] VITALS (15 sets, daily range): BP systolic 92–109; BP diastolic 52–67; PULSE 84–106; RESP 12–28; TEMP 37.7; O2SAT 97–100; BMI 19.7
--- NOTE | 2023-03-17 17:20 | DI.RAD.S_ITS ---
PROCEDURE: XR CHEST 1V INDICATIONS: chest pain TECHNIQUE: One view of the chest was acquired. COMPARISON: [facility], , CHEST 1 VIEW, 06/09/2006, 22:44. FINDINGS: Surgical changes and devices: None. Lungs and pleura: Lungs are clear. No pleural effusions or pneumothorax. Mediastinum: Mediastinal contours appear normal. Heart size is normal. Bones and chest wall: No suspicious bony lesions. Overlying soft tissues appear unremarkable. IMPRESSION: No acute cardiopulmonary abnormality is seen. Dictated by: Shree Cotton M.D. on 03/17/2023 at 16:58 Approved by: Shree Cotton M.D. on 03/17/2023 at 16:59
--- NOTE | 2023-03-17 18:08 | PC.NURSE ---
Pt declined IV/labs, states she would rather go home without tx, than have IV/labs. Discussed importance of line/labs given her C/O left sided chest pain. Patient said she wants to wait for her boyfriend to arrive before she makes any decisions about having IV/labs. Physician aware. Physician has reviewed EKG. Charge aware.
--- NOTE | 2023-03-17 18:12 | PC.NURSE ---
Pt believes she is 10 wks . This RN asked pt if this was her first , pt stated she had two children. RN was talking with pt about her children, asked pt how old she was and patient seemed offended. Meant to say how old are your children. Either way, pt upset about possibility of IV and upset with my questions. Charge aware.
--- NOTE | 2023-03-17 19:07 | ED_ITS ---
HPI - Chest Pain General Chief Complaint: Chest Pain Stated Complaint: Chest pain t-1 Time Seen by Provider: 03/17/23 18:07 Source: patient Mode of arrival: Ambulatory Limitations: no limitations History of Present Illness HPI narrative: 37-year-old female since she is 8-10 weeks with left-sided chest pain for 24 hours. Says it feels like a ?pulled muscle?. It is pleuritic in the sense that it hurts worse to take a deep breath or move. No recent traumatic injury that she is aware she is not short of breath has a mild cough has not had any fevers no leg swelling leg pain or prolonged immobilization. Says that in family history she had a sister who had heart attacks at age 19. There is no family history of early coronary disease no family history of coagulopathy. The patient herself does not have diabetes hypertension elevated cholesterol or known coronary disease. Reports that she smokes marijuana. Related Data Previous Rx's Medication Instructions Recorded ferrous gluconate 324 mg (38 mg 324 mg PO BID #60 tabs 05/06/16 iron) tablet medroxyprogesterone 10 mg tablet 0 PO SEE INSTRUCTIONS PRN #60 tabs 05/30/16 desogestrel 0.15 mg-ethinyl 1 ea PO SEE INSTRUCTIONS ##3 06/06/16 estradiol 0.03 mg tablet (Keveneber) ibuprofen 600 mg tablet 600 mg PO TID-QID PRN pain #20 tabs 10/17/17 lidocaine 5 % topical patch 2 patch topical DAILY PRN pain #15 06/28/21 (Lidoderm) ea methocarbamol 500 mg tablet 500 mg PO BID muscle spasm #14 tabs 06/28/21 tramadol 50 mg tablet 50 mg PO DAILY PRN pain #10 tabs 06/28/21 ibuprofen 600 mg tablet 600 mg PO Q8H PRN pain #20 tabs 07/17/21 Allergies Allergy/AdvReac Type Severity Reaction Status Date / Time No Known Drug Allergies Allergy Verified 08/26/22 04:34 Patient History Surgical History Status post dilation and curettage (05/22/16) Social History Smoking Status: Current every day smoker Smoking Status: Current every day smoker alcohol intake frequency: other Substance Use Type: marijuana and methamphetamine Exam Initial Vital Signs Initial Vital Signs: Vital Signs Temperature 99.9 F H 03/17/23 17:15 Pulse Rate 106 H 03/17/23 17:15 Respiratory Rate 20 03/17/23 17:15 Blood Pressure 109/62 03/17/23 17:15 Pulse Oximetry 98 03/17/23 17:15 Oxygen Delivery Method Room Air 03/17/23 17:15 Const General: cooperative and No in distress HENMT Head: normal to inspection and normocephalic Neck Other: Supple no cervical adenopathy, no jugular venous distention Chest Other: As a little bit of tenderness to palpation on the left side of the chest, Resp Effort & Inspection: normal respiratory effort Auscultation: clear to auscultation bilaterally Cardio Rate: regular rate Rhythm: regular rhythm Heart Sounds: S1 normal, S2 normal and no murmurs Neuro General: patient alert and patient oriented x3 Course Orders Ordered: ED Orders 03/17/23 19:20 Complete Blood Count AUTO DIFF Stat Comprehensive Metabolic Panel Stat Lipase Stat Magnesium Stat PTT Partial Thromboplastin [place] Stat Prothrombin Time INR Stat Troponin & CK Cardiac Panel Stat Discontinued Medications Acetaminophen (Acetaminophen 325 Mg Tablet) 650 mg PO NOW ONE Stop: 03/17/23 19:08 Last Admin: 03/17/23 19:23 Dose: 650 mg Documented By: KIERSTEN Naloxone HCl (Naloxone 4 Mg Nasal [place]) 4 mg MISC DIRECTED ONE Stop: 03/17/23 20:37 Last Admin: 03/17/23 20:41 Dose: 4 mg Documented By: KIERSTEN Vital Signs Vital signs: Vital Signs - 8 hr 03/17/23 19:00 03/17/23 19:00 03/17/23 19:15 Pulse Rate 95 H Respiratory Rate 20 Blood Pressure 94/56 L 96/59 L Pulse Oximetry 98 03/17/23 19:15 03/17/23 19:30 03/17/23 19:30 Pulse Rate 95 H 93 H Respiratory Rate 28 H 21 Blood Pressure 99/58 L Pulse Oximetry 99 100 03/17/23 19:45 03/17/23 19:45 03/17/23 20:00 Pulse Rate 93 H Respiratory Rate 18 Blood Pressure 100/62 105/62 Pulse Oximetry 99 03/17/23 20:00 03/17/23 20:15 03/17/23 20:15 Pulse Rate 89 84 Respiratory Rate 16 14 Blood Pressure 107/65 Pulse Oximetry 99 99 03/17/23 20:30 03/17/23 20:30 Pulse Rate 92 H Respiratory Rate 20 Blood Pressure 102/62 Pulse Oximetry 97 MDM - Chest Pain Differential Diagnosis Condition is:: Resolving Lab Data Lab results narrative: CBC with diff CMP are unremarkable troponin is normal 03/17/23 19:20 03/17/23 19:20 Labs: Lab Results 03/17/23 Range/Units 19:20 WBC 8.2 (4.5-11.0) X10^3/uL RBC 3.63 L (4.0-5.2) X10^6/uL Hgb 9.5 L (12.0-16.0) g/dL Hct 28.3 L (36-46) % MCV 78.0 L (80-100) fL MCH 26.0 (26-34) PG MCHC 33.4 (30-36) % RDW 17.1 H (11.6-14.8) % Plt Count 229 (150-400) X10^3/uL Neut % (Auto) 70.7 (50-75) % Lymph % (Auto) 18.2 L (25-40) % [place] % (Auto) 9.8 (3-14) % Eos % (Auto) 0.7 L (2-4) % Baso % (Auto) 0.6 (0-2) % Neut # (Auto) 5800 (9431-2766) /uL Lymph # (Auto) 1500 (7821-0914) /uL Forrest # (Auto) 800 (0-900) /uL Eos # (Auto) 100 (0-450) /uL Baso # (Auto) 100 (0-100) /uL PT 11.4 (9.4-12.5) SECONDS INR 1.0 (0.9-1.3) APTT 25 L (25.1-36.5) SECONDS Sodium 132 L (137-145) mmol/L Potassium 3.8 (3.4-5.1) mmol/L Chloride 103 (98-107) mmol/L Carbon Dioxide 24 (22-32) mmol/L BUN 10 (7-17) mg/dL Creatinine 0.58 (0.52-1.04) mg/dL Estimated GFR > 60 (>60) mL/min BUN/Creatinine Ratio 17.2 (6-22) Glucose 97 (70-100) mg/dL Calcium 9.2 (8.4-10.2) mg/dL Magnesium 1.8 (1.6-2.3) mg/dL Total Bilirubin 0.3 (0.2-1.3) mg/dL AST 21 (14-36) IU/L ALT 21 (<35) IU/L Alkaline Phosphatase 52 (38-126) U/L Total Creatine Kinase 47 (30-135) U/L Troponin I < 0.012 (0.01-0.034) ng/mL Total Protein 6.1 L (6.3-8.2) g/dL Albumin 3.4 L (3.5-5.0) g/dL Globulin 2.7 (1.7-4.1) g/dL Albumin/Globulin Ratio 1.3 (1.0-2.8) Lipase 83 (23-300) U/L Imaging Data Chest x-ray: My Impression: No acute disease Radiologist's Impression: No acute cardiopulmonary abnormality is seen ECG Data Interpretation: EKG shows normal sinus rhythm at 100. Will normal QRS duration normal axis is normal no acute ST segment changes, normal ECG Treatment and disposition Social Determinants of Health that impact treatment or disposition: Substance use history MDM Narrative Medical decision making narrative: 37-year-old female presenting with 24 hours of chest pain. She is approximately 10 weeks . Differential diagnosis includes pulmonary embolism, ischemic heart disease, pneumonia and chest wall pain. She is not hypoxic she is not tachypneic, does not have leg swelling I think pulmonary embolism is highly unlikely, D-dimer is very likely to be abnormal in clinically I think pulmonary embolism does not need to be considered further. Does not have an infiltrate on her chest x-ray does not have ischemic EKG changes and troponin is normal in spite of prolonged symptoms. I think she can safely be treated symptomatically at this point. Recommended she follow up with her primary care provider and indications for ED re-evaluation are discussed Discharge Plan Departure Patient Disposition: Home Clinical Impression: Anterior chest wall pain Instructions: DI for Atypical Chest Pain Activity Restrictions/Additional Instructions: May use Tylenol 650 mg every 6-8 hours as needed for pain. Follow up soon with your primary care provider. Return to the emergency department for increasing chest pain shortness of breath fevers or other acute symptoms. Prescriptions: No Action ibuprofen 600 mg tablet 600 mg PO Q8H PRN (Reason: pain) Qty: 20 0RF ferrous gluconate 324 MG tablet 324 mg PO BID Qty: 60 0RF medroxyprogesterone 10 MG tablet 0 PO SEE INSTRUCTIONS PRNQty: 60 0RF desogestrel-ethinyl estradiol [Juleber] 1 EACH tablet 1 ea PO SEE INSTRUCTIONS Qty: 3 3RF ibuprofen 600 mg tablet 600 mg PO TID-QID PRN (Reason: pain) Qty: 20 0RF lidocaine [Lidoderm] 5 % adhesive patch,medicated 2 patch topical DAILY PRN (Reason: pain) Qty: 15 0RF Rx Instructions: leave on most painful area for up to 12 hrs tramadol 50 mg tablet 50 mg PO DAILY PRN (Reason: pain) Qty: 10 0RF methocarbamol 500 mg tablet 500 mg PO BID Qty: 14 0RF Referrals: Juma Rowe MD [Primary Care Provider] - Stand Alone Forms: Patient Portal/API
--- NOTE | 2023-03-17 19:10 | PC.NURSE ---
Physician at bedside, aware of BP 94/56.
[2023-03-17] MEDS: ACETAMINOPHEN 325 MG TABLET 650 MG PO (19:23)
[2023-03-17 19:33] LABS: Add Manual Diff / Slide Review NO; Basophils Absolute Auto 100 /uL (0-100); Basophils Percent Auto 0.6 % (0-2); Eosinophils Absolute Auto 100 /uL (0-450); Eosinophils Percent Auto 0.7 % (2-4); Hematocrit 28.3 % (36-46); Hemoglobin 9.5 g/dL (12.0-16.0); Lymphocytes Absolute Auto 1500 /uL (1100-4500); Lymphocytes Percent Auto 18.2 % (25-40); Mean Corpuscular HGB Conc 33.4 % (30-36); Monocytes Absolute Auto 800 /uL (0-900); Monocytes Percent Auto 9.8 % (3-14); Neutrophils Absolute Auto 5800 /uL (1500-7000); Neutrophils Percent Auto 70.7 % (50-75); Platelet Count 229 X10^3/uL (150-400); Red Blood Cell Count 3.63 X10^6/uL (4.0-5.2); Red Cell Distribution Width 17.1 % (11.6-14.8); White Blood Cell Count 8.2 X10^3/uL (4.5-11.0)
[2023-03-17 19:37] LABS: Prothrombin Time 11.4 SECONDS (9.4-12.5)
[2023-03-17 19:40] LABS: PTT Partial Thromboplastin Tim 25 SECONDS (25.1-36.5)
[2023-03-17 19:43] LABS: Alanine Aminotransferase 21 IU/L (<35); Albumin 3.4 g/dL (3.5-5.0); Albumin Globulin Ratio 1.3 (1.0-2.8); Alkaline Phosphatase 52 U/L (38-126); Aspartate Aminotransferase 21 IU/L (14-36); BUN Creatinine Ratio 17.2 (6-22); Bilirubin Total 0.3 mg/dL (0.2-1.3); Blood Urea Nitrogen 10 mg/dL (7-17); Calcium 9.2 mg/dL (8.4-10.2); Carbon Dioxide 24 mmol/L (22-32); Chloride 103 mmol/L (98-107); Creatine Kinase 47 U/L (30-135); Estimated Glomerular Filt Rate > 60 mL/min (>60); Globulin 2.7 g/dL (1.7-4.1); Glucose 97 mg/dL (70-100); HEMOLYSIS < 15 (0-50); Lipase 83 U/L (23-300); Magnesium 1.8 mg/dL (1.6-2.3); Potassium 3.8 mmol/L (3.4-5.1); Sodium 132 mmol/L (137-145); Total Protein 6.1 g/dL (6.3-8.2)
[2023-03-17 19:55] LABS: Troponin I < 0.012 ng/mL (0.01-0.034)
[2023-03-17] MEDS: NALOXONE 4 MG NASAL SPRAY MISC (20:41)
== END 2023-03-17 20:45 | disposition home or self-care (01) ==
PROVIDERS: Emergency Medicine; Emergency Provider Emergency Medicine; PCP Student in an Organized Health Care Education/Training Program
DX: O26.891 Other specified pregnancy related conditions, first trimester (principal); R07.89 Other chest pain; Z3A.00 Weeks of gestation of pregnancy not specified
CPT/HCPCS: 36415; 71045; 80053; 82550; 83690; 83735; 84484; 85025; 85610; 85730; 93005; 93010; 99283; 99284; A9270

== ENCOUNTER 2023-04-10 10:43 | Emergency (ER) | payer OTHER, MEDICAID, SELFPAY ==
[2023-04-10 10:49] VITALS: BP 108/66; PULSE 97; RESP 18; TEMP 36.6; O2SAT 100
[2023-04-10 11:30] VITALS: BP 98/56; PULSE 95; RESP 18; O2SAT 98
[2023-04-10 11:40] LABS: Bacteria Urine Few (2-10); Culture Indicated Urine Specimen Cultured; RBC Urine 0-1/HPF (0-5/HPF); Squamous Epithelial Cell Urine 1-5 /HPF (0-5/HPF); WBC Urine 5-10/HPF (0-5/HPF)
[2023-04-10] MEDS: SODIUM CHLORIDE 0.9% 1,000 ML 1000 ML IV (12:00)
--- NOTE | 2023-04-10 12:04 | DI.US.S_ITS ---
PROCEDURE: US OB <= 14 WEEKS FETUS INDICATIONS: estimated 13 weeks EGA no prior US OUTSIDE/PRIOR DATING DATA: Last menstrual period (LMP): 01/06/2023 LMP-based estimated date of delivery (BREANA): 10/13/2023 First dating scan (date and location): 04/10/2023 Estimated date of delivery (BREANA) from first dating scan: 10/13/2023. The calculations are made using the working BREANA of 10/13/2023. TECHNIQUE: Real-time scanning was performed of the fetus and maternal pelvic organs, with image documentation. COMPARISON: None. FINDINGS: Embryo: Single intrauterine gestational sac is seen with fetus noted. [place]-rump length measures 7.3 cm. Estimated gestational age is 13 weeks, 3 days. Heart rate: 169 beats per minute. Maternal organs: Bilateral ovaries are visualized and are within normal limits. Prominent bilateral enlarged adnexal veins are seen measures up to 9.4 mm in size on the right side and 9.1 mm in size on the left side. Slow flow is noted within right adnexal vein, no definite intraluminal filling defect is seen. IMPRESSION: 1. Single live intrauterine gestation with fetus seen. Estimated gestational age is 13 weeks, 3 days. heart rate is 169 beats per minute. 2. Normal appearing bilateral ovaries. 3. Incidentally noted of prominent bilateral adnexal veins which may be seen associated with pelvic congestion syndrome. Slow flow is noted within right adnexal vein without definite intraluminal filling defect. We strive to produce accurate, complete, and clear reports of imaging services. To assist us in improving patient care, this report was composed using standard report templates and voice recognition software. Therefore, it may contain abnormal punctuation, insertions and/or omissions. Occasional wrong-word or sound-alike substitutions may occur. Though we review the report and make efforts to correct it, we do recommend that the report be read carefully in proper context to recognize any text inaccuracies. Dictated by: Ulises Thompson M.D. on 04/10/2023 at 13:55 Approved by: Ulises Thompson M.D. on 04/10/2023 at 13:58
[2023-04-10 12:30] VITALS: BP 108/78; PULSE 90; RESP 16; O2SAT 99
[2023-04-10 13:30] VITALS: BP 117/87; PULSE 82; RESP 18; O2SAT 99
--- NOTE | 2023-04-10 14:01 | ED.GENADULT ---
HPI - General Adult General Chief complaint: Syncope Stated complaint: fainted/ dizzy/ confused Time Seen by Provider: 04/10/23 12:04 Source: patient Mode of arrival: Ambulatory History of Present Illness HPI narrative: Patient is a 37-year-old female. Approximately 13 weeks EGA although this is based on a last menstrual cycle and she has not had an ultrasound up to this point. States last evening she had a headache. Did not have a headache this morning. States she got up earlier today and felt dizzy and apparently passed now. She has not having any abdominal pain or tenderness. No loss of fluid. She is having quite a bit of nausea but no vomiting. She feels like she has been eating and drinking like normal. I evaluated the patient after she would received fluids she states she feels better. Related Data Previous Rx's Medication Instructions Recorded ferrous gluconate 324 mg (38 mg 324 mg PO BID #60 tabs 05/06/16 iron) tablet medroxyprogesterone 10 mg tablet 0 PO SEE INSTRUCTIONS PRN #60 tabs 05/30/16 desogestrel 0.15 mg-ethinyl 1 ea PO SEE INSTRUCTIONS ##3 06/06/16 estradiol 0.03 mg tablet (Juleber) ibuprofen 600 mg tablet 600 mg PO TID-QID PRN pain #20 tabs 10/17/17 lidocaine 5 % topical patch 2 patch topical DAILY PRN pain #15 06/28/21 (Lidoderm) ea methocarbamol 500 mg tablet 500 mg PO BID muscle spasm #14 tabs 06/28/21 tramadol 50 mg tablet 50 mg PO DAILY PRN pain #10 tabs 06/28/21 ibuprofen 600 mg tablet 600 mg PO Q8H PRN pain #20 tabs 07/17/21 ondansetron 4 mg disintegrating 4 mg PO Q6H PRN nausea and 04/10/23 tablet vomiting #10 tabs vitamins no.154-ferrous 1 tab PO DAILY #30 tabs 04/10/23 fumarate 27 mg-folic acid 1 mg tablet Allergies Allergy/AdvReac Type Severity Reaction Status Date / Time No Known Drug Allergies Allergy Verified 08/26/22 04:34 Review of Systems Review of Systems ROS Unobtainable: All systems reviewed & are unremarkable except as noted in HPI and below Patient History Surgical History Status post dilation and curettage (05/22/16) Social History Smoking Status: Current every day smoker Smoking Status: Current every day smoker tobacco type: cigarettes and vaping alcohol intake frequency: other Substance Use Type: marijuana Exam Initial Vital Signs Initial Vital Signs: Vital Signs Temperature 97.9 F 04/10/23 10:49 Pulse Rate 97 H 04/10/23 10:49 Respiratory Rate 18 04/10/23 10:49 Blood Pressure 108/66 04/10/23 10:49 Pulse Oximetry 100 04/10/23 10:49 Oxygen Delivery Method Room Air 04/10/23 10:49 Const General: cooperative, comfortable and No ill appearing HENMT Head: normal to inspection and normocephalic Resp Effort & Inspection: normal respiratory effort Cardio Rate: regular rate Skin General: no rashes or lesions noted Neuro General: patient alert, patient awake and moves all extremities Course Orders Ordered: ED Orders 04/10/23 10:56 Urine Culture Stat Urine Microscopic Stat 04/10/23 11:07 EKG-12 Lead Stat 04/10/23 12:04 US OB <= 14 weeks fetus Stat Ondansetron HCl (Ondansetron 4 Mg Odt) 4 mg SL NOW PRN PRN Reason: Nausea And Vomiting Ondansetron HCl (Ondansetron 4 Mg/2 Ml Inj) 4 mg IV NOW PRN PRN Reason: Nausea And Vomiting Discontinued Medications Sodium Chloride (Normal Saline 0.9%) 1,000 mls @ 1,000 mls/hr IV BOLUS ONE Stop: 04/10/23 12:20 Last Infusion: 04/10/23 12:40 Dose: Infused Documented By: Admin: 04/10/23 12:00 Dose: 1,000 mls/hr Documented By: RAYSHAWN Vital Signs Vital signs: Vital Signs - 8 hr 04/10/23 10:49 04/10/23 11:30 04/10/23 12:30 Temperature 97.9 F Pulse Rate 97 H 95 H 90 Respiratory Rate 18 18 16 Blood Pressure 108/66 98/56 L 108/78 Pulse Oximetry 100 98 99 Oxygen Delivery Method Room Air Room Air Room Air 04/10/23 13:30 Temperature Pulse Rate 82 Respiratory Rate 18 Blood Pressure 117/87 Pulse Oximetry 99 Oxygen Delivery Method Room Air Medical Decision Making Lab Data Lab results reviewed: Yes I reviewed the patient's lab results. Labs: Lab Results 04/10/23 Range/Units 10:56 Urine RBC 0-1/hpf (0-5/HPF) Urine WBC 5-10/hpf H (0-5/HPF) Ur Squamous Epith Cells 1-5 /hpf (0-5/HPF) Urine Bacteria Few (2-10) H (None) Ur Culture Indicated? Specimen cultured Point of Care Testing Test Results Positive Urine Dip Bedside Urine Glucose Negative Bedside Urine Bilirubin + 1 Bedside Urine Ketone - Negative Urine Specific [place] 1.025 Bedside Urine Occult Blood - Negative Bedside Urine pH 6.0 Bedside Urine Protein - Negative Bedside Urine Urobilinogen - Negative Bedside Urine Nitrite - Negative Bedside Urine Leukocytes +/- 15 Esterase Point of care testing: Point of Care Testing Test Results Positive Urine Dip Bedside Urine Glucose Negative Bedside Urine Bilirubin + 1 Bedside Urine Ketone - Negative Urine Specific [place] 1.025 Bedside Urine Occult Blood - Negative Bedside Urine pH 6.0 Bedside Urine Protein - Negative Bedside Urine Urobilinogen - Negative Bedside Urine Nitrite - Negative Bedside Urine Leukocytes +/- 15 Esterase Imaging Data US - OB: Radiologist's Impression: PROCEDURE: US OB <= 14 WEEKS FETUS INDICATIONS: estimated 13 weeks EGA no prior US OUTSIDE/PRIOR DATING DATA: Last menstrual period (LMP): 01/06/2023 LMP-based estimated date of delivery (BREANA): 10/13/2023 First dating scan (date and location): 04/10/2023 Estimated date of delivery (BREANA) from first dating scan: 10/13/2023. The calculations are made using the working BREANA of 10/13/2023. TECHNIQUE: Real-time scanning was performed of the fetus and maternal pelvic organs, with image documentation. COMPARISON: None. FINDINGS: Embryo: Single intrauterine gestational sac is seen with fetus noted. [place]-rump length measures 7.3 cm. Estimated gestational age is 13 weeks, 3 days. Heart rate: 169 beats per minute. Maternal organs: Bilateral ovaries are visualized and are within normal limits. Prominent bilateral enlarged adnexal veins are seen measures up to 9.4 mm in size on the right side and 9.1 mm in size on the left side. Slow flow is noted within right adnexal vein, no definite intraluminal filling defect is seen. IMPRESSION: 1. Single live intrauterine gestation with fetus seen. Estimated gestational age is 13 weeks, 3 days. heart rate is 169 beats per minute. 2. Normal appearing bilateral ovaries. 3. Incidentally noted of prominent bilateral adnexal veins which may be seen associated with pelvic congestion syndrome. Slow flow is noted within right adnexal vein without definite intraluminal filling defect. ECG Data Attestation: I personally reviewed and interpreted this ECG as follows: Interpretation: Sinus rhythm Ventricular rate 90 Normal axis Normal QRS Normal QTC No ST T wave changes MDM Narrative Medical decision making narrative: Feels better after fluids. Labs unremarkable. Ultrasound is unremarkable. EKG is unremarkable. No further workup required here in the emergency department will discharge patient home with vitamins and Zofran. She was given return precautions. She expressed understanding and agreement. The ultrasound today shows that the baby is 13 weeks and 3 days. Discharge Plan Departure Patient Disposition: Home Clinical Impression: , Fainting Instructions: Fainting Activity Restrictions/Additional Instructions: You can use the nausea medication as needed. Do recommend you take the vitamins as well. Be sure that your increasing your fluid intake. You do need follow-up with OB. Prescriptions: New ondansetron 4 mg tablet,disintegrating 4 mg PO Q6H PRN (Reason: nausea and vomiting) Qty: 10 0RF PNV no.154-iron fumarate-folic 27 mg iron- 1 mg tablet 1 tab PO DAILY Qty: 30 0RF No Action ibuprofen 600 mg tablet 600 mg PO Q8H PRN (Reason: pain) Qty: 20 0RF ferrous gluconate 324 MG tablet 324 mg PO BID Qty: 60 0RF medroxyprogesterone 10 MG tablet 0 PO SEE INSTRUCTIONS PRNQty: 60 0RF desogestrel-ethinyl estradiol [Juleber] 1 EACH tablet 1 ea PO SEE INSTRUCTIONS Qty: 3 3RF ibuprofen 600 mg tablet 600 mg PO TID-QID PRN (Reason: pain) Qty: 20 0RF lidocaine [Lidoderm] 5 % adhesive patch,medicated 2 patch topical DAILY PRN (Reason: pain) Qty: 15 0RF Rx Instructions: leave on most painful area for up to 12 hrs tramadol 50 mg tablet 50 mg PO DAILY PRN (Reason: pain) Qty: 10 0RF methocarbamol 500 mg tablet 500 mg PO BID Qty: 14 0RF Referrals: Juma Rowe MD [Primary Care Provider] - Stand Alone Forms: Patient Portal/API
[2023-04-10 14:15] VITALS: BP 106/68; PULSE 83; RESP 12; O2SAT 99
== END 2023-04-10 14:16 | disposition home or self-care (01) ==
PROVIDERS: Emergency Provider Emergency Medicine; PCP Student in an Organized Health Care Education/Training Program
DX: O26.91 Pregnancy related conditions, unspecified, first trimester (principal); R55 Syncope and collapse; R07.9 Chest pain, unspecified; Z3A.13 13 weeks gestation of pregnancy
CPT/HCPCS: 36415; 76801; 81003; 81015; 81025; 87077; 87086; 87186; 93005; 96360; 99284